=== PATIENT | male | born 1955 | race Hispanic/Latino ===

== ENCOUNTER → 2020-07-15 | Outpatient (CLI) | payer OTHER ==
[~2020-07-15] MED LIST: AMLO-257 PO; FISH1CAP49 PO; LISI20TA24 PO; NIAC-8 PO
== END | disposition home or self-care (01) ==
LOC: OIH 18:17
PROVIDERS: ATTEND Internal Medicine Cardiovascular Disease
DX: Z13.6 Encounter for screening for cardiovascular disorders (principal)
CPT/HCPCS: 75571

== ENCOUNTER → 2020-08-06 | Outpatient (CLI) | payer BC | END | disposition home or self-care (01) | LOC: SHCH 15:14 | PROVIDERS: ATTEND Internal Medicine Cardiovascular Disease | DX: I11.9 Hypertensive heart disease without heart failure (principal) | CPT/HCPCS: 93306; 93356 ==